=== PATIENT | male | born 2005 | race Caucasian/White ===

== ENCOUNTER 2024-10-11 17:28 | Observation (INO) ==
--- NOTE | 2024-10-11 19:00 | Emergency Department Note ---
Impression & Plan Cellulitis of arm, left, Contusion of elbow, left ED Provider Note NAME: MYRIAM MAGALLANES AGE: 19 SEX: M : 2005 ARRIVES VIA: Walk-In INFORMANT: Patient, ED PROVIDER(S): José Luis Valdivia DO CHIEF COMPLAINT: Elbow pain HPI: The patient is a 19-year-old male who presented to the emergency department for elbow pain and swelling. He had a fall last Monday onto his left elbow. He has a small puncture wound. He was seen at a local emergency department and was felt to have traumatic bursitis. He was treated with an Javed wrap as well as antibiotics. The patient noticed over the last few days his arms become much more swollen. He denies significant pain but does have decreased range of motion in left elbow. ROS: See above HPI for pertinent positives & negatives. A total of 10 systems reviewed and were otherwise negative. PAST MEDICAL HISTORY: See Below PAST SURGICAL HISTORY: See Below FAMILY HISTORY: See Below SOCIAL HISTORY: See Below HOME MEDICATIONS: See Below ALLERGIES: See Below VITALS: See Below PHYSICAL EXAMINATION: GENERAL: Patient is awake alert in no acute distress patient is resting comfortably and showing no signs of anxiety EYES: The conjunctivae are clear. The pupils are round and reactive. EARS, NOSE, MOUTH AND THROAT: The nose is without any evidence of any deformity. NECK: The neck is nontender and supple. RESPIRATORY: Normal respiratory effort is noted there is no evidence of wheezing rhonchi or rales CARDIOVASCULAR: Regular rate and rhythm noted there no murmurs rubs or gallops normal S1 normal S2. GASTROINTESTINAL: The abdomen is soft. Abdomen is nontender. MUSCULOSKELETAL/EXTREMITIES: There is no evidence of gross deformity full range of motion is noted in the hips and shoulders. There is pain with flexion and extension of the left elbow. There is significant swelling of the joint. SKIN: There is small puncture wound at the elbow. No drainage or bleeding was noted. There is significant erythema noted on the lateral aspect of the left elbow but extends into the proximal left arm as well as into the left forearm. NEUROLOGIC: Patient is awake alert and oriented x3 MEDICAL DECISION MAKING: The patient is a 19-year-old male who presented to the emergency department with left arm swelling and redness. The patient has an injury to his left arm which occurred previously. He continues to have swelling. His pain is significantly improved. X-rays were consistent with a possible fracture but CT does not show any obvious fracture. There is no obvious joint effusion. There is no foreign body or fluid collection. The patient was treated with IV antibiotics emergency department. I discussed the patient's laboratory and radiographic studies with him. I also discussed his condition with the on-call [facility] hospitalist. They have agreed to evaluate the patient in the emergency department for further management and disposition. Triage Nursing notes reviewed. Prior medical records reviewed Vital Signs: reviewed and remarkable for no significant abnormalities Differential diagnosis: Cellulitis, abscess, MRSA infection, DVT, necrotizing fasciitis, dermatitis, drug eruption, allergic reaction, as well as other pathologies. ER treatment provided: See below Diagnostics interpreted by me: ECG: none Cardiac Monitoring: An order was placed for continuous cardiac monitoring. The monitor shows a rate of 100 bpm with sinus rhythm. Laboratory studies: As stated above and show below. Imaging studies: See below. Radiographic imaging was reviewed by myself Consultation(s): I discussed this case with Dr. Leone. Past Med/Surg History Problem List (Updated 10/11/24 @ 23:39 by José Luis Valdivia DO) Contusion of elbow, left (Acute) Cellulitis of arm, left (Acute) Social History Smoking Status: Never smoker Preferred Language: Jordanian Feels Safe at Home: Yes Results & Data (ED) Vital Signs Vital Signs - 24 hr 10/11/24 17:54 10/11/24 19:23 10/11/24 19:34 Temperature 36.7 C 37.3 C Temperature Source Temporal Artery Scan Oral Pulse Rate 96 H 88 Pulse Rate [Apical] 90 Pulse Rhythm [Apical] Pulse Strength [Apical] Respiratory Rate 18 12 Respiratory Effort / Characteristics Non-Labored Spontaneous Respiratory Depth Normal Respiratory Pattern Regular Blood Pressure 139/80 Blood Pressure [Right Arm] 117/92 Blood Pressure Mean 99 Blood Pressure Mean [Right Arm] 100 Blood Pressure Position [Right Arm] Semi-fowlers Pulse Oximetry 97 100 Oxygen Delivery Method Room Air Room Air Sepsis New/Unexplained Change in Mental Status No Sepsis Action Taken by Nursing No Action Required 10/11/24 21:00 10/11/24 23:25 Temperature Temperature Source Pulse Rate Pulse Rate [Apical] 91 H 100 H Pulse Rhythm [Apical] Regular Regular Pulse Strength [Apical] Normal Normal Respiratory Rate 16 18 Respiratory Effort / Characteristics Non-Labored Non-Labored Spontaneous Respiratory Depth Normal Normal Respiratory Pattern Regular Regular Blood Pressure Blood Pressure [Right Arm] 131/76 136/76 Blood Pressure Mean Blood Pressure Mean [Right Arm] 94 96 Blood Pressure Position [Right Arm] Lying Pulse Oximetry 98 98 Oxygen Delivery Method Room Air Room Air Sepsis New/Unexplained Change in Mental Status Sepsis Action Taken by Residential Medications Current Medication List: was personally reviewed by me Laboratory Data Attestation: I reviewed the patient's lab results. 10/11/24 19:32 10/11/24 19:32 Lab Results 10/11/24 Range/Units 19:32 WBC 7.89 (4.8-10.8) K/ul RBC 5.14 (4.70-6.10) M/uL Hgb 14.9 (14.0-18.0) g/dl Hct 43.1 (42.0-52.0) % MCV 83.9 (80.0-100.0) fL MCH 29.0 (25.0-34.0) pg MCHC 34.6 (32.0-36.0) g/dL RDW Std Deviation 35.4 L (36.4-46.3) fL RDW Coeff of Denise 11.6 (11.5-14.5) % Plt Count 252 (130-400) K/uL MPV 10.3 (9.4-12.4) fL Immature Gran % (Auto) 0.3 % Neut % (Auto) 66.4 % Lymph % (Auto) 20.3 % [place] % (Auto) 6.0 % Eos % (Auto) 6.7 % Baso % (Auto) 0.3 % Neut # (Auto) 5.25 (1.40-6.50) K/uL Lymph # (Auto) 1.60 (1.20-3.40) K/uL [place] # (Auto) 0.47 (0.11-0.59) K/uL Eos # (Auto) 0.53 H (0.00-0.50) K/uL Baso # (Auto) 0.02 (0.00-0.20) K/uL Immature Gran # (Auto) 0.02 (0.01-0.20) K/uL Sodium 139 (136-145) mmol/L Potassium 4.0 (3.5-5.1) mmol/L Chloride 106 (98-107) mmol/L Carbon Dioxide 26 (21-32) mmol/L Anion Gap 7 (3-11) BUN 11 (6-23) mg/dl Creatinine 0.77 (0.6-1.4) mg/dl Est Cr Clr Drug Dosing 209.5 ml/min eGFR 131.44 BUN/Creatinine Ratio 14.3 (10-20) Glucose 90 (70-99(Fasting)) mg/dl Lactate 0.7 (0.4-2.0) mmol/L Calcium 9.0 (8.6-10.3) mg/dl Total Bilirubin 1.0 (0.2-1.0) mg/dl AST 12 L (13-39) U/L ALT 18 (7-52) U/L Alkaline Phosphatase 61 (34-104) U/L C-Reactive Protein 8.66 H (0-0.5) mg/dl Total Protein 7.5 (6.0-8.3) gm/dl Albumin 4.3 (3.4-5.0) gm/dl Globulin 3.2 (2.5-4.0) gm/dl Albumin/Globulin Ratio 1.3 (0.9-2) Procalcitonin 0.23 (0-0.5) ng/ml Administered Medications Vancomycin HCl 2,250 mg/ (Sodium Chloride) 545 mls @ 200 mls/hr IV NOW ONE Stop: 10/12/24 00:32 Last Admin: 10/11/24 22:24 Dose: 200 mls/hr Documented By: DIAZ Discontinued Medications Ceftriaxone Sodium (Rocephin) 2,000 mg in 50 mls @ 100 mls/hr IV NOW STA Stop: 10/11/24 19:18 Last Infusion: 10/11/24 20:08 Dose: Infused Documented By: Admin: 10/11/24 19:35 Dose: 100 mls/hr Documented By: DIAZ Imaging Data Attestation: I personally reviewed and interpreted this imaging study as follows: My Impression: X-ray of the left elbow was obtained in the emergency department. My interpretation is no free air or definite fracture, final report below. Radiologist's Impression: Elbow X-Ray 10/11/24 18:49 EXAM: XR elbow LT min 3V routine CLINICAL HISTORY: left elbow pain, redness and swelling after fall on monday clw TECHNIQUE: X-ray images of the left elbow were obtained in anteroposterior (AP), lateral, and oblique projections. COMPARISON: No prior studies available for comparison. FINDINGS: Bone Structure: cortical break/stepping of the cortex at the lateral aspect of the proximal end of the ulna. A faint lucent line and then the condylar region of the distal humerus. Articular Surfaces: Articular surfaces are smooth and intact. No signs of osteophyte formation or subchondral sclerosis. Soft Tissues: Mild soft tissue swelling Additional Findings: No signs of degenerative changes, such as osteoarthritis or inflammatory arthropathy. IMPRESSION: 1. Cortical break/stepping of the cortex at the lateral aspect of the proximal end of the ulna. 2. A faint lucent line and then the condylar region of the distal humerus. 3. Advised a CT scan for further evaluation. Disclaimer: A subtle bone abnormality or fracture may not be readily apparent on X-rays, thus clinical correlation and further imaging including follow-up CT, MRI, or follow-up X-rays are advised as needed. Electronically signed by Rose Mitchell 10-11-2024 8:00 PM Extremity Venous Study 10/11/24 18:51 Exam(s): US VENOUS LEFT UPPER EXTREMITY EXAM: US Duplex Left Upper Extremity Veins CLINICAL HISTORY: Reason for exam: swelling. TECHNIQUE: Real-time duplex ultrasound scan of the left upper extremity veins integrating B-mode two-dimensional vascular structure, Doppler spectral analysis, color flow Doppler imaging and compression. COMPARISON: No relevant prior studies available. FINDINGS: Deep veins: Unremarkable. No DVT in the internal jugular, subclavian, axillary, radial, ulnar, or brachial veins. The veins demonstrate normal color flow, are normally compressible, with normal phasic flow and/or augmentation response. Superficial veins: Unremarkable. No thrombus in the visualized basilic and cephalic veins. Soft tissues: No acute findings. IMPRESSION: No evidence of acute DVT. Electronically signed by: Zari Centeno M.D. 10/11/24 20:[address] 10/11/24 20:16 Exam(s): CT LEFT ELBOW Without Contrast EXAM: CT Left Upper Extremity Without Intravenous Contrast, Elbow CLINICAL HISTORY: Reason for exam: injury. TECHNIQUE: Axial computed tomography images of the left elbow without intravenous contrast. CTDI is 19.88 mGy and DLP is 407.17 mGy-cm. Automated exposure control was utilized for the study. A dose lowering technique was utilized adhering to the principles of ALARA. COMPARISON: Left elbow radiographs 10/11/24 FINDINGS: Bones/joints: Unremarkable. No fracture, dislocation, or joint effusion. Soft tissues: Posterior soft tissue swelling/contusion. IMPRESSION: 1. No fracture, dislocation, or joint effusion. 2. Posterior soft tissue swelling/contusion. Electronically signed by: Zari Centeno M.D. 10/11/24 21:04 PM Discharge Plan Visit Data Chief Complaint: Swelling/Edema to Extremity Stated Complaint: ELBOW SWOLLEN, INFECTED ED Provider: José Luis Valdivia Discharge Problem: Cellulitis of arm, left, Contusion of elbow, left Patient Disposition: Being Evaluated by Hospitalist Forms Stand Alone Forms: [facility], [facility] Referrals Referrals: PCP,NO [Physician] - Discharge Problem: Contusion of elbow, left Qualifiers: Encounter type: initial encounter Qualified Code(s): S50.02XA - Contusion of left elbow, initial encounter
[2024-10-11] MEDS: cefTRIAXone SODIUM 2,000 MG/50 ML BAG IV STA (19:35)
[2024-10-11 19:55] LABS: Basophils # (auto) 0.02 K/uL (0.00-0.20); Basophils % (auto) 0.3 %; Eosinophils # (auto) 0.53 K/uL (0.00-0.50); Eosinophils % (auto) 6.7 %; Hematocrit (blood only) 43.1 % (42.0-52.0); Hemoglobin 14.9 g/dl (14.0-18.0); Immature Granulocytes # (auto) 0.02 K/uL (0.01-0.20); Immature Granulocytes % (auto) 0.3 %; Lymphocytes % (auto) 20.3 %; Mean Corpuscular Hgb Conc 34.6 g/dL (32.0-36.0); Mean Corpuscular Volume 83.9 fL (80.0-100.0); Mean Platelet Volume 10.3 fL (9.4-12.4); Monocytes # (auto) 0.47 K/uL (0.11-0.59); Neutrophils # (auto) 5.25 K/uL (1.40-6.50); Neutrophils % (auto) 66.4 %; Platelet Count 252 K/uL (130-400); RDW Coefficient of Variation 11.6 % (11.5-14.5); RDW Standard Deviation 35.4 fL (36.4-46.3); Red Blood Count 5.14 M/uL (4.70-6.10); White Blood Count 7.89 K/ul (4.8-10.8)
--- NOTE | 2024-10-11 20:00 | XRay Report ---
EXAM: XR elbow LT min 3V routine CLINICAL HISTORY: left elbow pain, redness and swelling after fall on monday clw TECHNIQUE: X-ray images of the left elbow were obtained in anteroposterior (AP), lateral, and oblique projections. COMPARISON: No prior studies available for comparison. FINDINGS: Bone Structure: cortical break/stepping of the cortex at the lateral aspect of the proximal end of the ulna. A faint lucent line and then the condylar region of the distal humerus. Articular Surfaces: Articular surfaces are smooth and intact. No signs of osteophyte formation or subchondral sclerosis. Soft Tissues: Mild soft tissue swelling Additional Findings: No signs of degenerative changes, such as osteoarthritis or inflammatory arthropathy. IMPRESSION: 1. Cortical break/stepping of the cortex at the lateral aspect of the proximal end of the ulna. 2. A faint lucent line and then the condylar region of the distal humerus. 3. Advised a CT scan for further evaluation. Disclaimer: A subtle bone abnormality or fracture may not be readily apparent on X-rays, thus clinical correlation and further imaging including follow-up CT, MRI, or follow-up X-rays are advised as needed. Electronically signed by Rose Mitchell 10-11-2024 8:00 PM
[2024-10-11 20:11] LABS: Albumin Globulin Ratio 1.3 (0.9-2); Albumin Level 4.3 gm/dl (3.4-5.0); BUN Creatinine Ratio 14.3 (10-20); Creatinine Clr Calc Pharmacy 209.5 ml/min; Globulin 3.2 gm/dl (2.5-4.0); Total Protein 7.5 gm/dl (6.0-8.3)
--- NOTE | 2024-10-11 20:42 | Ultrasound Report ---
Exam(s): US VENOUS LEFT UPPER EXTREMITY EXAM: US Duplex Left Upper Extremity Veins CLINICAL HISTORY: Reason for exam: swelling. TECHNIQUE: Real-time duplex ultrasound scan of the left upper extremity veins integrating B-mode two-dimensional vascular structure, Doppler spectral analysis, color flow Doppler imaging and compression. COMPARISON: No relevant prior studies available. FINDINGS: Deep veins: Unremarkable. No DVT in the internal jugular, subclavian, axillary, radial, ulnar, or brachial veins. The veins demonstrate normal color flow, are normally compressible, with normal phasic flow and/or augmentation response. Superficial veins: Unremarkable. No thrombus in the visualized basilic and cephalic veins. Soft tissues: No acute findings. IMPRESSION: No evidence of acute DVT. Electronically signed by: Zari Centeno M.D. 10/11/24 20:41 PM
--- NOTE | 2024-10-11 21:05 | CT Scan Report ---
Exam(s): CT LEFT ELBOW Without Contrast EXAM: CT Left Upper Extremity Without Intravenous Contrast, Elbow CLINICAL HISTORY: Reason for exam: injury. TECHNIQUE: Axial computed tomography images of the left elbow without intravenous contrast. CTDI is 19.88 mGy and DLP is 407.17 mGy-cm. Automated exposure control was utilized for the study. A dose lowering technique was utilized adhering to the principles of ALARA. COMPARISON: Left elbow radiographs 10/11/24 FINDINGS: Bones/joints: Unremarkable. No fracture, dislocation, or joint effusion. Soft tissues: Posterior soft tissue swelling/contusion. IMPRESSION: 1. No fracture, dislocation, or joint effusion. 2. Posterior soft tissue swelling/contusion. Electronically signed by: Zari Centeno M.D. 10/11/24 21:04 PM
[2024-10-11] MEDS ORDERED: VANCOMYCIN CONSULT ACTIVE PRN (21:49)
--- NOTE | 2024-10-11 22:17 | History & Physical Report ---
Date of Service October 11, 2024 Assessment & Plan (1) Contusion of elbow, left: (2) Cellulitis of arm, left: Plan Left elbow contusion/left arm cellulitis- Continue vancomycin IV and ceftriaxone IV begun in ED Acetaminophen 650 mg by mouth every 6 hours as needed for mild pain or fever Zofran 4 mg IV every 6 hours as needed SCDs Patient will check on up-to-date of Tetanus X-ray of left elbow question cortical break/stepping off of the cortex of the lateral aspect the proximal end of the ulna. A faint lucent line and then the condyle region of the distal humerus. CT scan of elbow showed no fracture, dislocation or joint effusion. There was posterior soft tissue swelling/contusion Consult orthopedic surgery History of Present Illness Chief Complaint: The patient presents to the emergency department with complaint of worsening left elbow pain, swelling and progressive redness despite use of Keflex after having been seen at an outside hospital emergency department for an injury to his left elbow with small puncture wound 4 days ago Primary Care Provider: [facility] The patient is a 19-year-old male with no significant past medical history, who fell on a 30 concrete about 4 days ago, was seen in the emergency department outside hospital, had imaging which was negative for fracture, and was placed on Keflex and instructed to follow-up when he reached [place]. The patient presents to the ED this evening with complaint of worsening pain, stiffness, swelling and progressive redness. He denies any systemic symptoms of myalgias or arthralgias, fatigue, or other symptoms suggestive of sepsis. He thinks his tetanus shot is up-to-date, but he will be checking on that with his family Allergies Allergy/AdvReac Type Severity Reaction Status Date / Time No Known Allergies Allergy Unverified 10/12/24 00:24 Past Med/Surg History Problem List (Updated 10/11/24 @ 23:39 by José Luis Valdivia DO) Contusion of elbow, left (Acute) Cellulitis of arm, left (Acute) Social History Smoking Status: Never smoker Second Hand Exposure: No; Do You Dip or Chew Tobacco: No; Tobacco Cessation Education Requested by Patient: No Hx Alcohol Use: Yes Alcohol type: beer Hx Substance Use: No Preferred Language: Turkmen Communication Ability: Effective Oil Gauger Required: No Beliefs That Will Affect Care: None Current Living Situation: Alone Current Living Situation Comment: Student at [employer] Feels Safe at Home: Yes Assistive Devices: Glasses Review of Systems Review of Systems: The patient denies chest pain, palpitations, shortness of breath, dyspnea on exertion, cough, lower extremity swelling, sore throat, fevers, chills, sweats, weight change, fatigue, nausea, vomiting, diarrhea , constipation, abdominal pain, pelvic pain, blood in urine or stool, dysuria, urinary frequency or urgency, lightheadedness, dizziness, headache, imbalance, focal or generalized weakness, numbness or tingling in right arm or bilateral legs, generalized arthralgias or myalgias, back or neck pain, or night sweats. The review of systems is otherwise negative other than for that already noted above, and at least 10 systems have been reviewed. Physical Exam Physical Exam: The patient is awake, alert and oriented 3, well developed and well nourished, normocephalic and atraumatic, lying in bed and in no acute distress. HEENT--PERRL, EOMI, mucous membranes and oropharynx dry. Neck--supple. No JVD. No bruits. Thyroid normal, trachea midline, no adenopathy. Heart--normal S1 and S2. No murmurs, rubs or gallops. Lungs--clear bilaterally, no respiratory distress, no accessory muscle use. Abdomen--normal bowel sounds and soft. Nontender. Nondistended, no hernias or masses, no organomegaly. Extremities--bilateral lower extremities with no cyanosis clubbing or edema. Left upper extremity with 1+ edema, and erythema extending from mid bicep to mid forearm, with tenderness over elbow Dermatologic--normal except for left arm and elbow. Neurologic--cranial nerves II through XII grossly intact. Rheumatologic--normal range of motion except for left arm and elbow Psychiatric--normal affect. Results & Data Results & Data Vital Signs (Past 12 Hours) Vital Signs Temp Pulse Pulse Resp BP BP Pulse Ox 10/11/24 21:00 91 H 16 131/76 98 10/11/24 19:34 88 10/11/24 19:23 37.3 C 90 12 117/92 100 10/11/24 17:54 36.7 C 96 H 18 139/80 97 O2 Del Method 10/11/24 21:00 Room Air 10/11/24 19:34 10/11/24 19:23 Room Air 10/11/24 17:54 Room Air Laboratory Results Laboratory Results WBC 7.89 K/ul (4.8-10.8) 10/11/24 19:32 RBC 5.14 M/uL (4.70-6.10) 10/11/24 19:32 Hgb 14.9 g/dl (14.0-18.0) 10/11/24 19:32 Hct 43.1 % (42.0-52.0) 10/11/24 19:32 MCV 83.9 fL (80.0-100.0) 10/11/24 19: MCH 29.0 pg (25.0-34.0) 10/11/24 19: MCHC 34.6 g/dL (32.0-36.0) 10/11/24 19: RDW Std Deviation 35.4 fL (36.4-46.3) L 10/11/24 19: RDW Coeff of Denise 11.6 % (11.5-14.5) 10/11/24 19:32 Plt Count 252 K/uL (130-400) 10/11/24 19:32 MPV 10.3 fL (9.4-12.4) 10/11/24 19:32 Immature Gran % (Auto) 0.3 % 10/11/24 19:32 Neut % (Auto) 66.4 % 10/11/24 19:32 Lymph % (Auto) 20.3 % 10/11/24 19:32 Moody % (Auto) 6.0 % 10/11/24 19:32 Eos % (Auto) 6.7 % 10/11/24 19:32 Baso % (Auto) 0.3 % 10/11/24 19:32 Neut # (Auto) 5.25 K/uL (1.40-6.50) 10/11/24 19:32 Lymph # (Auto) 1.60 K/uL (1.20-3.40) 10/11/24 19:32 Moody # (Auto) 0.47 K/uL (0.11-0.59) 10/11/24 19:32 Eos # (Auto) 0.53 K/uL (0.00-0.50) H 10/11/24 19:32 Baso # (Auto) 0.02 K/uL (0.00-0.20) 10/11/24 19:32 Immature Gran # (Auto) 0.02 K/uL (0.01-0.20) 10/11/24 19:32 Sodium 139 mmol/L (136-145) 10/11/24 19:32 Potassium 4.0 mmol/L (3.5-5.1) 10/11/24 19:32 Chloride 106 mmol/L (98-107) 10/11/24 19:32 Carbon Dioxide 26 mmol/L (21-32) 10/11/24 19:32 Anion Gap 7 (3-11) 10/11/24 19:32 BUN 11 mg/dl (6-23) 10/11/24 19:32 Creatinine 0.77 mg/dl (0.6-1.4) 10/11/24 19:32 Est Cr Clr Drug Dosing 209.5 ml/min 10/11/24 19:32 eGFR 131.44 10/11/24 19:32 BUN/Creatinine Ratio 14.3 (10-20) 10/11/24 19:32 Glucose 90 mg/dl (70-99(Fasting)) 10/11/24 19:32 Lactate 0.7 mmol/L (0.4-2.0) 10/11/24 19:32 Calcium 9.0 mg/dl (8.6-10.3) 10/11/24 19:32 Total Bilirubin 1.0 mg/dl (0.2-1.0) 10/11/24 19:32 AST 12 U/L (13-39) L 10/11/24 19:32 ALT 18 U/L (7-52) 10/11/24 19:32 Alkaline Phosphatase 61 U/L (34-104) 10/11/24 19:32 C-Reactive Protein 8.66 mg/dl (0-0.5) H 10/11/24 19:32 Total Protein 7.5 gm/dl (6.0-8.3) 10/11/24 19:32 Albumin 4.3 gm/dl (3.4-5.0) 10/11/24 19:32 Globulin 3.2 gm/dl (2.5-4.0) 10/11/24 19:32 Albumin/Globulin Ratio 1.3 (0.9-2) 10/11/24 19:32 Procalcitonin 0.23 ng/ml (0-0.5) 10/11/24 19:32 Impressions Elbow X-Ray 10/11/24 18:49 EXAM: XR elbow LT min 3V routine CLINICAL HISTORY: left elbow pain, redness and swelling after fall on monday clw TECHNIQUE: X-ray images of the left elbow were obtained in anteroposterior (AP), lateral, and oblique projections. COMPARISON: No prior studies available for comparison. FINDINGS: Bone Structure: cortical break/stepping of the cortex at the lateral aspect of the proximal end of the ulna. A faint lucent line and then the condylar region of the distal humerus. Articular Surfaces: Articular surfaces are smooth and intact. No signs of osteophyte formation or subchondral sclerosis. Soft Tissues: Mild soft tissue swelling Additional Findings: No signs of degenerative changes, such as osteoarthritis or inflammatory arthropathy. IMPRESSION: 1. Cortical break/stepping of the cortex at the lateral aspect of the proximal end of the ulna. 2. A faint lucent line and then the condylar region of the distal humerus. 3. Advised a CT scan for further evaluation. Disclaimer: A subtle bone abnormality or fracture may not be readily apparent on X-rays, thus clinical correlation and further imaging including follow-up CT, MRI, or follow-up X-rays are advised as needed. Electronically signed by Rose Mitchell 10-11-2024 8:00 PM Extremity Venous Study 10/11/24 18:51 Exam(s): US VENOUS LEFT UPPER EXTREMITY EXAM: US Duplex Left Upper Extremity Veins CLINICAL HISTORY: Reason for exam: swelling. TECHNIQUE: Real-time duplex ultrasound scan of the left upper extremity veins integrating B-mode two-dimensional vascular structure, Doppler spectral analysis, color flow Doppler imaging and compression. COMPARISON: No relevant prior studies available. FINDINGS: Deep veins: Unremarkable. No DVT in the internal jugular, subclavian, axillary, radial, ulnar, or brachial veins. The veins demonstrate normal color flow, are normally compressible, with normal phasic flow and/or augmentation response. Superficial veins: Unremarkable. No thrombus in the visualized basilic and cephalic veins. Soft tissues: No acute findings. IMPRESSION: No evidence of acute DVT. Electronically signed by: Zari Centeno M.D. 10/11/24 20:[address] 10/11/24 20:16 Exam(s): CT LEFT ELBOW Without Contrast EXAM: CT Left Upper Extremity Without Intravenous Contrast, Elbow CLINICAL HISTORY: Reason for exam: injury. TECHNIQUE: Axial computed tomography images of the left elbow without intravenous contrast. CTDI is 19.88 mGy and DLP is 407.17 mGy-cm. Automated exposure control was utilized for the study. A dose lowering technique was utilized adhering to the principles of ALARA. COMPARISON: Left elbow radiographs 10/11/24 FINDINGS: Bones/joints: Unremarkable. No fracture, dislocation, or joint effusion. Soft tissues: Posterior soft tissue swelling/contusion. IMPRESSION: 1. No fracture, dislocation, or joint effusion. 2. Posterior soft tissue swelling/contusion. Electronically signed by: Zari Centeno M.D. 10/11/24 21:04 PM Code Status & VTE Plan Code Status Full code VTE Prophylaxis Plan VTE Prophylaxis will be ordered: Yes PG Care Time/CCT Total # of Minutes Spent Total Time Spent with Patient: Total time spent is greater than 50% in coordination of care (as documented) at patient's floor/unit and/or counseling patient: Coding Level of Care Code 43836 INT INP/OBS CARE 2/55MIN Diagnoses Contusion of elbow, left S50.02XA Encounter type: initial encounter Cellulitis of arm, left L03.114 (1) Contusion of elbow, left Encounter type: initial encounter Qualified Code(s): S50.02XA - Contusion of left elbow, initial encounter
[2024-10-11] MEDS: VANCOMYCIN HCL 2,250 MG in SODIUM CHLORIDE 0.9% 500 ML IV ONE (22:24)
[2024-10-11 22:57] LABS: C Reactive Protein 8.66 mg/dl (0-0.5)
[2024-10-12] MEDS ORDERED: ONDANSETRON INJ 2 MG/ML 2 ML VIAL IV PRN (00:04)
[2024-10-12] MEDS ORDERED: VANCOMYCIN CONSULT ACTIVE PRN (00:04)
[2024-10-12] MEDS ORDERED: Patient's ALLERGY Info needs ENTERED STA (00:08)
[2024-10-12] MEDS: VANCOMYCIN HCL 1,500 MG in SODIUM CHLORIDE 0.9% 500 ML IV SCH (04:34)
[2024-10-12] MEDS: ACETAMINOPHEN 325 MG TAB PO PRN (04:38)
[2024-10-12] MEDS: INFLUENZA VACC TS2024-25(6m+)/PF (IIV3) 0.5mL Syr IM ONE (07:18)
[2024-10-12 07:29] LABS: Basophils # (auto) 0.05 K/uL (0.00-0.20); Basophils % (auto) 0.7 %; Eosinophils # (auto) 0.59 K/uL (0.00-0.50); Eosinophils % (auto) 8.7 %; Hematocrit (blood only) 40.4 % (42.0-52.0); Hemoglobin 14.1 g/dl (14.0-18.0); Immature Granulocytes # (auto) 0.03 K/uL (0.01-0.20); Immature Granulocytes % (auto) 0.4 %; Lymphocytes # (auto) 1.91 K/uL (1.20-3.40); Mean Corpuscular Hemoglobin 29.4 pg (25.0-34.0); Mean Corpuscular Hgb Conc 34.9 g/dL (32.0-36.0); Mean Corpuscular Volume 84.3 fL (80.0-100.0); Mean Platelet Volume 10.2 fL (9.4-12.4); Monocytes # (auto) 0.58 K/uL (0.11-0.59); Monocytes % (auto) 8.5 %; Neutrophils # (auto) 3.65 K/uL (1.40-6.50); Neutrophils % (auto) 53.7 %; Platelet Count 238 K/uL (130-400); RDW Coefficient of Variation 11.5 % (11.5-14.5); RDW Standard Deviation 35.5 fL (36.4-46.3); Red Blood Count 4.79 M/uL (4.70-6.10); White Blood Count 6.81 K/ul (4.8-10.8)
--- NOTE | 2024-10-12 07:43 | Hospitalist Progress Note ---
Date of Service October 12, 2024 Assessment & Plan (1) Cellulitis of arm, left: Plan: 19yo M presented after fall on concrete ~4 days prior and seen at [facility]SH ER w/ negative xrays and put on keflex with follow up rec in [place] however presented to ER w/ worsening pain/stiffness/swelling and redness-- small puncture wound to left elbow and reported fluid drainage prior to admission w/ improvement following (no active drainage) Left elbow contusion/left arm cellulitis- Extremity Doppler without evidence for DVT X-ray of left elbow question cortical break/stepping off of the cortex of the lateral aspect the proximal end of the ulna. A faint lucent line and then the condyle region of the distal humerus. CT scan of elbow showed no fracture, dislocation or joint effusion. There was posterior soft tissue swelling/contusion Orthopedic surgery consulted Continue Vancomycin, Ceftriaxone. --No hx DM/no recent hot tub use. Suspect need for MRSA coverage Pain control/antiemetic as needed Nursing to provide pillow, elevation encouraged Patient is unsure of tetanus status, will provide booster in case SCDs ordered Monitoring on continued abx given failure of outpatient oral antibiotcs but has SIGNIFICANT improvement on exam and suspect able to dc in AM (2) Contusion of elbow, left: Plan: as above, orthopedics consult appreciated. CT w/o acute fracture given concerns on initial xray (3) Hypokalemia: Plan: K 3.4, PO replacement ordered. Mag wnl 1.9 Monitor on repeat Plan Dispo: continued inpatient stay on IV antibiotics but if continued improvement will plan to send on oral antibiotics in AM will need school note Admission and Anticipated Discharge Date Admission Date: October 11, 2024 Supervising Physician Co-Signing Physician Notes The patient was not seen by me. The chart was reviewed. Case discussed with DAMIAN Vanegas. Agree with assessment and plan Subjective Patient evaluated this morning, resting in bed. Reports feeling better. Cellulitis significantly improved. ROM intact, slight reduction w/ swelling. No active drainage but had some prior, discussed to alert if occurs and will send culture but remains on abx. Discussed as on abx prior to admission would like at least 24 hours given failure of oral antibiotics. Nursing to provide pillow and encouraged elevation to improve swelling. No hx DM, no recent hot tub use. Denied any improvement once started the keflex and discussed likely need for coverage for MRSA and will plan for dc tomorrow on oral if continued improvement as Is student, will need note. Does not live in the dorms. No fever/chills, chest pain, shortness of breath, abdominal pain, nausea at this time. Questions/concerns addressed at this time. Physical Exam 2 Physical Exam: General: 19yo male resting in bed, NAD, appears comfortable HEENT: head atraumatic, normocephalic, mmm, trachea midline Resp: even/unlabored, no obvious wheezing/cough, no tachypnea, on room air CV: RRR, no significant m/r/g, no pitting edema GI: +BS, soft/NT no iglesias MSK/Neuro: LUE with significant improvement in cellulitis, no active drainage from puncture wound to posterior shoulder, minimal eschar/scab, mild edema persists from biceps to dorsal forearm, minimal-mild tenderness, (rn to provide pillow for elevation) ROM intact with exception to extreme extension at the elbow 2nd to swelling Psych: AOx3, cooperative with exam Results & Data Results & Data Vital Signs (Past 12 Hours) Vital Signs Temp Pulse Resp BP Pulse Ox O2 Del Method 10/12/24 00:11 37.1 C 96 H 16 132/71 98 Room Air 10/12/24 00:11 37.1 C 96 H 16 132/71 98 Room Air 10/11/24 23:36 Room Air 10/11/24 23:25 100 H 18 136/76 98 Room Air 10/11/24 21:00 91 H 16 131/76 98 Room Air Laboratory Results 10/12/24 06:51 10/12/24 06:51 Mag 1.9 CRP 8.66 Procal 0.23 PG Care Time/CCT Total # of Minutes Spent Total Time Spent with Patient: Total time spent is greater than 50% in coordination of care (as documented) at patient's floor/unit and/or counseling patient: Coding Level of Care Code 26107 SUB INP/OBS CARE 2/35MIN Diagnoses Cellulitis of arm, left L03.114 Contusion of elbow, left S50.02XA Encounter type: initial encounter Hypokalemia E87.6 (2) Contusion of elbow, left Encounter type: initial encounter Qualified Code(s): S50.02XA - Contusion of left elbow, initial encounter
[2024-10-12 08:04] LABS: Albumin Level 3.4 gm/dl (3.4-5.0); BUN Creatinine Ratio 12.2 (10-20); Calcium 8.7 mg/dl (8.6-10.3); Creatinine Clr Calc Pharmacy 217.7 ml/min; Magnesium 1.9 mg/dl (1.7-2.4); Phosphorus 4.9 mg/dl (2.5-4.9); Potassium 3.4 mmol/L (3.5-5.1)
[2024-10-12] MEDS: POTASSIUM CHLORIDE CRTAB 20 MEQ TABCR PO STA (09:17)
--- NOTE | 2024-10-12 10:00 | Pharmacy Report ---
Pharmacy PK ABX Note - Date of Service October 12, 2024 - Assessment and Plan Assessment * 19 year old M receiving ceftriaxone and vancomycin for treatment of cellulitis from an abrasion that did not improve on cephalexin. Plan Vancomycin * Loading dose: 2250 mg IV x 1 * Maintenance dose: 1500 mg IV every 8 hours * Regimen is predicted to achieve target AUC/PARRISH of 400-600 mg/L.hr * Trough level ordered for 10/13 @ 0330 Pharmacy will continue to follow and will adjust dose/frequency as necessary. Thank you. Pharmacy has transitioned to AUC monitoring for vancomycin. AUC/PARRISH is the preferred PK/PD target and is associated with decreased risk of nephrotoxicity compared to traditional trough targets.
--- NOTE | 2024-10-12 10:28 | Orthopedic Consultation ---
Date of Service October 12, 2024 Assessment & Plan (1) Cellulitis of arm, left: 27-year-old otherwise healthy male with posttraumatic bursitis that is evolved into some cellulitis. I see no indications for surgical intervention. Agree with current management. Recommend adding strict elevation on pillows. Consider full 24 hours of IV antibiotics before transitioning to oral regimen, the primary medical team's discretion. I will examine again in the morning if he remains inpatient. History of Present Illness Reason for Consultation: Left elbow cellulitis Requesting Physician: . Attending Physician: Yasir Stafford MD 19-year-old male sustained an impact injury to his left elbow when he fell down the stairs onto concrete floor on Saturday 10/06. He had a traumatic abrasion. The following day he had significant swelling and increasing pain at the elbow. He described it as like a baseball over his elbow. He was wearing a sweatshirt when he felt sudden release of significant amount of fluid draining out of the punctate abrasive wound. He went to the emergency room. He was treated with oral Keflex. This was an outside hospital down. He presented to the ER last night because of redness and swelling further down his forearm. He states that the elbow actually looks and feels better since the fluid released. He was concerned about the pressure and pain in his arm around the elbow. He denies any fevers, chills, no malaise. No history of similar symptoms. Allergies Allergy/AdvReac Type Severity Reaction Status Date / Time No Known Allergies Allergy Unverified 10/12/24 00:24 Past Med/Surg History Problem List Hypokalemia Contusion of elbow, left (Acute) Cellulitis of arm, left (Acute) Social History Smoking Status: Never smoker Second Hand Exposure: No; Do You Dip or Chew Tobacco: No; Tobacco Cessation Education Requested by Patient: No Hx Alcohol Use: Yes Alcohol type: beer Hx Substance Use: No Preferred Language: Ukrainian Communication Ability: Effective Furnace Brazer Required: No Beliefs That Will Affect Care: None Current Living Situation: Alone Current Living Situation Comment: Student at [employer] Feels Safe at Home: Yes Assistive Devices: Glasses Review of Systems All systems reviewed & are unremarkable except as noted in HPI & below. Physical Exam L UE: He is lying with his arm lying across his belly. He looks comfortable. He has full range of motion about the elbow wrist and digits and full pronation supination. No palpable elbow effusion. The skin over the olecranon has wrinkles and appears slightly edematous. Compared to his other uninvolved extremity, there is some edema in the skin and erythema extending over the dorsal forearm about midway towards the wrist. He is diffusely and mildly tender to this area. The punctate wound is at the apex of his olecranon. It is 2 to 3 mm in size and has a dry eschar. I attempted to express any fluid from the olecranon bursa but he tolerated this well and no fluid could be obtained. Look to be wellevolved and resolving. No evidence of focal fluid collections. Constitutional WD/WN, vitals as above no acute distress and not intoxicated appearing Respiratory normal respiratory effort; no labored breathing Cardiovascular Extremities: normal capillary refill Results & Data Results & Data Laboratory Results Laboratory Tests 10/11/24 10/12/24 19:32 06:51 WBC 6.81 Neut % (Auto) 53.7 C-Reactive Protein 8.66 H Diagnostic Findings Radiographs of the left elbow were reviewed from the ER last night. Reviewed the radiology interpretation. I disagree. I do not see any evidence of acute fracture. CT scan from overnight was reviewed. I reviewed the radiologist rotation. I agree that the elbow is without any acute fractures. There is diffuse soft tissue swelling without evidence of free fluid collection nor soft tissue air. PG Care Time/CCT Total # of Minutes Spent Total Time Spent with Patient: Total time spent is greater than 50% in coordination of care (as documented) at patient's floor/unit and/or counseling patient: Coding Level of Care Code 44061 IN/OBS CONSULT LVL 4,60M Diagnoses Cellulitis of arm, left L03.114
[2024-10-12] MEDS: DIPHTHER/TETAN/PERTUS Vaccine (Tdap, Adol/Adult) 0.5mL IM ONE (11:11)
[2024-10-12] MEDS ORDERED: KETOROLAC TROMETHAMINE 15 MG/ML VIAL IV PRN (14:48)
[2024-10-12] MEDS: cefTRIAXone SODIUM 2,000 MG/50 ML BAG IV SCH (18:07)
[2024-10-13 03:37] LABS: Basophils # (auto) 0.05 K/uL (0.00-0.20); Basophils % (auto) 0.7 %; Eosinophils # (auto) 0.69 K/uL (0.00-0.50); Eosinophils % (auto) 9.9 %; Hematocrit (blood only) 43.6 % (42.0-52.0); Hemoglobin 15.1 g/dl (14.0-18.0); Immature Granulocytes # (auto) 0.04 K/uL (0.01-0.20); Immature Granulocytes % (auto) 0.6 %; Lymphocytes # (auto) 2.21 K/uL (1.20-3.40); Lymphocytes % (auto) 31.8 %; Mean Corpuscular Hgb Conc 34.6 g/dL (32.0-36.0); Mean Corpuscular Volume 83.7 fL (80.0-100.0); Mean Platelet Volume 9.9 fL (9.4-12.4); Monocytes # (auto) 0.52 K/uL (0.11-0.59); Monocytes % (auto) 7.5 %; Neutrophils # (auto) 3.45 K/uL (1.40-6.50); Neutrophils % (auto) 49.5 %; Platelet Count 265 K/uL (130-400); RDW Coefficient of Variation 11.6 % (11.5-14.5); RDW Standard Deviation 34.9 fL (36.4-46.3); Red Blood Count 5.21 M/uL (4.70-6.10); White Blood Count 6.96 K/ul (4.8-10.8)
[2024-10-13 03:57] LABS: Albumin Level 3.7 gm/dl (3.4-5.0); C Reactive Protein 3.27 mg/dl (0-0.5); Calcium 9.2 mg/dl (8.6-10.3); Creatinine Clr Calc Pharmacy 187.3 ml/min; Magnesium 2.1 mg/dl (1.7-2.4); Phosphorus 4.8 mg/dl (2.5-4.9); Potassium 3.9 mmol/L (3.5-5.1)
[2024-10-13 07:32] VITALS: BP 122/72; PULSE 81; RESP 16; TEMP 97.9; O2SAT 96
--- NOTE | 2024-10-13 08:29 | Hospitalist Progress Note ---
Date of Service October 13, 2024 Assessment & Plan (1) Cellulitis of arm, left: Plan: 19yo M presented after fall on concrete ~4 days prior and seen at OSH ER w/ negative xrays and put on keflex with follow up rec in [place] however presented to ER w/ worsening pain/stiffness/swelling and redness-- small puncture wound to left elbow and reported fluid drainage prior to admission w/ improvement following (no active drainage) Left elbow contusion/left arm cellulitis- Extremity Doppler without evidence for DVT X-ray of left elbow question cortical break/stepping off of the cortex of the lateral aspect the proximal end of the ulna. A faint lucent line and then the condyle region of the distal humerus. CT scan of elbow showed no fracture, dislocation or joint effusion. There was posterior soft tissue swelling/contusion Orthopedic surgery consulted Continue Vancomycin, Ceftriaxone. --No hx DM/no recent hot tub use. Suspect need for MRSA coverage Pain control/antiemetic as needed Nursing to provide pillow, elevation encouraged Patient is unsure of tetanus status, will provide booster in case SCDs ordered Monitoring on continued abx given failure of outpatient oral antibiotcs but has SIGNIFICANT improvement on exam and suspect able to dc in AM 10/13 Continued on vanc/ceftriaxone. do note eosinophil elevation but no significant rash on exam. 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 CRP has trended down on repeat 8.6--> 3.2 -- Will see ortho consult f/u and potential dc today on ?Bactrim (2) Contusion of elbow, left: Plan: as above, orthopedics consult appreciated. CT w/o acute fracture given concerns on initial xray (3) Hypokalemia: Plan: K 3.4, PO replacement ordered. Mag wnl 1.9 Monitor on repeat Plan Dispo: continued inpatient stay on IV antibiotics but if continued improvement will plan to send on oral antibiotics in AM will need school note Admission and Anticipated Discharge Date Admission Date: October 11, 2024 Results & Data Results & Data Vital Signs (Past 12 Hours) Vital Signs Temp Pulse Resp BP Pulse Ox O2 Del Method 10/13/24 07:31 36.6 C 81 16 122/72 96 Room Air PG Care Time/CCT Total # of Minutes Spent Total Time Spent with Patient: Total time spent is greater than 50% in coordination of care (as documented) at patient's floor/unit and/or counseling patient: Coding Diagnoses Cellulitis of arm, left L03.114 Contusion of elbow, left S50.02XA Encounter type: initial encounter Hypokalemia E87.6 (2) Contusion of elbow, left Encounter type: initial encounter Qualified Code(s): S50.02XA - Contusion of left elbow, initial encounter
--- NOTE | 2024-10-13 09:44 | Pharmacy Report ---
Pharmacy PK ABX Note - Date of Service October 13, 2024 - Assessment and Plan Assessment * 19 year old M receiving ceftriaxone and vancomycin for treatment of cellulitis from an abrasion that did not improve on cephalexin. Plan Vancomycin * Maintenance dose: 1500 mg IV every 8 hours * Target AUC/PARRISH of 400-600 mg/L.hr * Level of 11.8 mcg/mL today associated with a therapeutic AUC of 442 mg/L.hr * Repeat earlier random level in 48 hours to assess for accumulation 2nd BMI Pharmacy will continue to follow and will adjust dose/frequency as necessary. Thank you. Pharmacy has transitioned to AUC monitoring for vancomycin. AUC/PARRISH is the preferred PK/PD target and is associated with decreased risk of nephrotoxicity compared to traditional trough targets.
--- NOTE | 2024-10-13 11:39 | Discharge Summary ---
Discharge Summary Date of Service October 13, 2024 Principal Dx & Hospital Course #1 = Principal Diagnosis (1) Cellulitis of arm, left: 19yo M presented after fall on concrete ~4 days prior and seen at [facility] ER w/ negative xrays and put on keflex with follow up rec in [place] however presented to ER w/ worsening pain/stiffness/swelling and redness-- small puncture wound to left elbow and reported fluid drainage prior to admission w/ improvement following. UTD on tetanus shots/immunizations per mom. Extremity Doppler without evidence for DVT X-ray of left elbow question cortical break/stepping off of the cortex of the lateral aspect the proximal end of the ulna. A faint lucent line and then the condyle region of the distal humerus. CT scan of elbow showed no fracture, dislocation or joint effusion. Noted posterior soft tissue swelling/contusion Had been placed on Ceftriaxone/Vancomycin on admission. No hx DM/pseudomonas or hot tub use. Given Keflex use [employer], suspected needing coverage for MRSA. No active drainage appreciated Orthopedic surgery consulted, suspected post-traumatic bursitis with development into cellulitis. Rec'd for another 24hours IV antibiotics prior to discharge Encouraged elevation, toradol/tylenol available for pain, SCDs for DVT proph given low risk. Repeat exam 10/13 with improvement in redness/swelling as well as ROM of the elbow and discussed with orthopedics stable for discharge and has appt at home on with orthopedics. WBC remained wnl, afebrile. CRP trended down from 8.6--> 3.2 prior to discharge. Avoid tubs/soaks, keep clean. ROM/elevation. Dispo: Discharged on Bactrim 1 tablet BID x 7 more days, can be extended if needed. Discussed sx to monitor/return to ER for, avoid alcohol. Monitor for rash/diarrhea. Notable eosinophil elevation on differential but no other rash on exam/no difficulty breathing. Discussed with patient about having repeat blood counts obtained in follow up to ensure resolution but can be from meds/infection. Continue elevation. (2) Contusion of elbow, left: 2nd to fall on concrete above Orthopedics consult appreciated CT w/o acute fracture given concerns on initial xray Tx as outlined above and stable for dc with outpatient follow up above (3) Hypokalemia: K 3.4, PO replacement ordered. Mag wnl 1.9. Improved/resolved on repeat testing Plan Discharged on Bactrim BID to complete course. Updated father at bedside. Ortho f/u at home. Meds sent to home pharmacy and provided dose bactrim PO prior to dc. Notes For Next Care Provider Ensure orthopedics follow up Medication Changes From Visit Bactrim PO BID x 7 days, can be extended if needed Admission HPI Per Admitting Provider The patient is a 19-year-old male with no significant past medical history, who fell on a 30 concrete about 4 days ago, was seen in the emergency department outside hospital, had imaging which was negative for fracture, and was placed on Keflex and instructed to follow-up when he reached [place]. The patient presents to the ED this evening with complaint of worsening pain, stiffness, swelling and progressive redness. He denies any systemic symptoms of myalgias or arthralgias, fatigue, or other symptoms suggestive of sepsis. He thinks his tetanus shot is up-to-date, but he will be checking on that with his family Admission Exam Per Admitting Provider The patient is awake, alert and oriented 3, well developed and well nourished, normocephalic and atraumatic, lying in bed and in no acute distress. HEENT--PERRL, EOMI, mucous membranes and oropharynx dry. Neck--supple. No JVD. No bruits. Thyroid normal, trachea midline, no adenopathy. Heart--normal S1 and S2. No murmurs, rubs or gallops. Lungs--clear bilaterally, no respiratory distress, no accessory muscle use. Abdomen--normal bowel sounds and soft. Nontender. Nondistended, no hernias or masses, no organomegaly. Extremities--bilateral lower extremities with no cyanosis clubbing or edema. Left upper extremity with 1+ edema, and erythema extending from mid bicep to mid forearm, with tenderness over elbow Dermatologic--normal except for left arm and elbow. Neurologic--cranial nerves II through XII grossly intact. Rheumatologic--normal range of motion except for left arm and elbow Psychiatric--normal affect. Discharge Exam General: 19yo male resting in bed, NAD, appears comfortable, father in room HEENT: head atraumatic, normocephalic, mm improved Resp: even/unlabored, no obvious wheezing/cough, no tachypnea, on room air CV: RRR, no significant m/r/g, no pitting edema GI: +BS, soft/NT no iglesias MSK/Neuro: LUE with significant improvement in erythema/cellulitis, improvement in ROM, no drainage, pulses present/sensation intact. Nontender over olecranon bursal/no effusion noted Psych: AOx3, cooperative with exam Discharge Plan Discharge Items Patient Disposition: Home - Self-Care Reason For Visit: LEFT ELBOW CELLULITIS/BURSITIS Discharge Diagnosis: Cellulitis Goals: You have been hospitalized for an acute medical problem. During your stay at [facility], we have made an effort to correct the problem that brought you to the hospital while keeping you as comfortable as possible. Medications were used to bring your condition under control and your discharge instructions will include directions for any medications you should take after leaving the hospital. Please make sure you see your Primary Care Provider as part of your follow up plan. Activity: As commented below Activity Comment: continue to keep elevated above the level of the heart to help swelling Non-emergency contact: Primary Care Provider and Surgeon Call non-emergency contact if: you have any medication questions, your symptoms worsen, your pain is not controlled, your pain is concerning for you and you have a fever Follow-up/Referrals: [facility] [Primary Care Provider] - (PLEASE MAKE HOSPITAL FOLLOW UP IN 7-10 DAYS.) Diet: Regular Addtl Attending Provider Instructions: You have been hospitalized for redness/swelling and concerns for progression of cellulitis following trauma and outpatient antibiotics. We treated you with IV antibiotics to cover for MRSA which was not previously covered and your white count has been normal/no fevers and improvement in cellulitis on exam. Imaging was negative for acute blood clot. CT imaging did not show any abscess or fluid collection needing drained and did not report any fractures. Orthopedics was consulted and recommended at least 24 hours of IV antibiotics prior to transition to oral agents to complete the course. At discharge, we are recommending continued elevation of the elbow to level of the heart to help with swelling as well as continued antibiotics in the form of BACTRIM which is to be taken twice daily for another 7 days. Monitor for any increased diarrhea/changes to your urine or yellowing of skin on this antibiotic however generally well tolerated and you do not have a reported allergy and this will cover for MRSA as well as most other common bacteria living on the skin. Please continue to monitor for any increased redness/swelling/fever or drainage and follow up with orthopedics at home on as already arranged however if occurs prior to that appointment please return to the closest ER. Please keep the area clean/dry and avoid hot tubs/soaking in the tub. Please consider repeat blood count in follow up to ensure resolution in eosinophils and monitoring for other rash as discussed/alert provider if occurs. Please also follow up with primary care in the next 7-10 days to monitor your progress after discharge/coordinate your care. It has been a pleasure being a part of the medical team providing for you while you have been in the hospital. Take care! Pending Studies at Discharge: No Stand-Alone Forms: My [facility] [employer], Work/School Release, Smoking Cessation Medications and DC Order Prescriptions: New sulfamethoxazole-trimethoprim [Bactrim DS] 800-160 mg tablet 1 tab PO BID Qty: 13 0RF Discharge Orders: Discharge Order (Routine); Ordered 10/13/24 Ordered By: Keli Jones/Other Patient Handouts: Cellulitis Dc Admission Data Admit Date/Time: 10/11/24 22:16 Attending Provider: Yasir Stafford Admit Provider: César Felix Primary Care Provider: [facility] Other Providers: Greg Ocampo; César Felix Other Interventions: Discharge Summary Assessment (RN) Last Done: 10/13/24 12:03 Hospital Stay Data Consultations 10/11/24 21:49 ED Decision to Admit Stat 10/11/24 22:16 Consult Orthopedic Surgery Routine Diagnostic Imagining Performed Elbow X-Ray 10/11/24 18:49 EXAM: XR elbow LT min 3V routine CLINICAL HISTORY: left elbow pain, redness and swelling after fall on monday clw TECHNIQUE: X-ray images of the left elbow were obtained in anteroposterior (AP), lateral, and oblique projections. COMPARISON: No prior studies available for comparison. FINDINGS: Bone Structure: cortical break/stepping of the cortex at the lateral aspect of the proximal end of the ulna. A faint lucent line and then the condylar region of the distal humerus. Articular Surfaces: Articular surfaces are smooth and intact. No signs of osteophyte formation or subchondral sclerosis. Soft Tissues: Mild soft tissue swelling Additional Findings: No signs of degenerative changes, such as osteoarthritis or inflammatory arthropathy. IMPRESSION: 1. Cortical break/stepping of the cortex at the lateral aspect of the proximal end of the ulna. 2. A faint lucent line and then the condylar region of the distal humerus. 3. Advised a CT scan for further evaluation. Disclaimer: A subtle bone abnormality or fracture may not be readily apparent on X-rays, thus clinical correlation and further imaging including follow-up CT, MRI, or follow-up X-rays are advised as needed. Electronically signed by Rose Mitchell 10-11-2024 8:00 PM Extremity Venous Study 10/11/24 18:51 Exam(s): US VENOUS LEFT UPPER EXTREMITY EXAM: US Duplex Left Upper Extremity Veins CLINICAL HISTORY: Reason for exam: swelling. TECHNIQUE: Real-time duplex ultrasound scan of the left upper extremity veins integrating B-mode two-dimensional vascular structure, Doppler spectral analysis, color flow Doppler imaging and compression. COMPARISON: No relevant prior studies available. FINDINGS: Deep veins: Unremarkable. No DVT in the internal jugular, subclavian, axillary, radial, ulnar, or brachial veins. The veins demonstrate normal color flow, are normally compressible, with normal phasic flow and/or augmentation response. Superficial veins: Unremarkable. No thrombus in the visualized basilic and cephalic veins. Soft tissues: No acute findings. IMPRESSION: No evidence of acute DVT. Electronically signed by: Zari Centeno M.D. 10/11/24 20:[address] 10/11/24 20:16 Exam(s): CT LEFT ELBOW Without Contrast EXAM: CT Left Upper Extremity Without Intravenous Contrast, Elbow CLINICAL HISTORY: Reason for exam: injury. TECHNIQUE: Axial computed tomography images of the left elbow without intravenous contrast. CTDI is 19.88 mGy and DLP is 407.17 mGy-cm. Automated exposure control was utilized for the study. A dose lowering technique was utilized adhering to the principles of ALARA. COMPARISON: Left elbow radiographs 10/11/24 FINDINGS: Bones/joints: Unremarkable. No fracture, dislocation, or joint effusion. Soft tissues: Posterior soft tissue swelling/contusion. IMPRESSION: 1. No fracture, dislocation, or joint effusion. 2. Posterior soft tissue swelling/contusion. Electronically signed by: Zari Centeno M.D. 10/11/24 21:04 PM Discharge Instructions Given to Patient (Per Discharging Provider) You have been hospitalized for redness/swelling and concerns for progression of cellulitis following trauma and outpatient antibiotics. We treated you with IV antibiotics to cover for MRSA which was not previously covered and your white count has been normal/no fevers and improvement in cellulitis on exam. Imaging was negative for acute blood clot. CT imaging did not show any abscess or fluid collection needing drained and did not report any fractures. Orthopedics was consulted and recommended at least 24 hours of IV antibiotics prior to transition to oral agents to complete the course. At discharge, we are recommending continued elevation of the elbow to level of the heart to help with swelling as well as continued antibiotics in the form of BACTRIM which is to be taken twice daily for another 7 days. Monitor for any increased diarrhea/changes to your urine or yellowing of skin on this antibiotic however generally well tolerated and you do not have a reported allergy and this will cover for MRSA as well as most other common bacteria living on the skin. Please continue to monitor for any increased redness/swelling/fever or drainage and follow up with orthopedics at home on as already arranged however if occurs prior to that appointment please return to the closest ER. Please keep the area clean/dry and avoid hot tubs/soaking in the tub. Please consider repeat blood count in follow up to ensure resolution in eosinophils and monitoring for other rash as discussed/alert provider if occurs. Please also follow up with primary care in the next 7-10 days to monitor your progress after discharge/coordinate your care. It has been a pleasure being a part of the medical team providing for you while you have been in the hospital. Take care! Supervising Physician Co-Signing Physician Notes The patient was not seen by me. The chart was reviewed. Case discussed with DAMIAN Vanegas. Agree with assessment and plan Total Time Total Time Spent Total Time Spent (In Minutes): 40 Coding Level of Care Code 75060 INP/OBS DISCH >30 MIN Diagnoses Cellulitis of arm, left L03.114 Contusion of elbow, left S50.02XA Encounter type: initial encounter Hypokalemia E87.6
--- NOTE | 2024-10-13 11:41 | Orthopedic Progress Note ---
Date of Service October 13, 2024 Assessment & Plan (1) Cellulitis of arm, left: 27-year-old otherwise healthy male with posttraumatic bursitis that is evolved into some cellulitis which shows improvement today. I see no indications for surgical intervention. Agree with current management. Stable for outpatient follow-up in my opinion. Antibiotic selection per the primary team I encouraged him to keep his appointment Monday for another exam. Subjective Patient was evaluated today in his hospital room. His dad was present today. The patient reports he is feeling better and is ready to go home. He has an appointment for follow-up on Monday with an orthopedic surgeon in [place]. He denies any fevers, chills. He reports minimal discomfort in his left forearm. He has full range of elbow wrist and digits. Review of Systems All systems reviewed & are unremarkable except as noted in HPI & below. Physical Exam Left arm: Overall slightly improved. He still has some erythema along the ulnar border of the middle aspect of the forearm. Seems to be somewhat narrowed from yesterday. Certainly not significantly worse. The olecranon area appears even better. It is decongested and has normal mobility and wrinkles. The punctate wound has a dry stable eschar. He is nontender over the olecranon bursal area. No palpable elbow effusion. Full active range of motion to the entirety of the upper extremity. Constitutional WD/WN, vitals as above no acute distress and not intoxicated appearing Respiratory normal respiratory effort; no labored breathing Cardiovascular Extremities: normal capillary refill Results & Data Results & Data Laboratory Results . Diagnostic Findings Laboratory Tests 10/13/24 03:05 WBC 6.96 Neut % (Auto) 49.5 Eos # (Auto) 0.69 H C-Reactive Protein 3.27 H H & H 10/11/24 10/12/24 10/13/24 Range/Units 19:32 06:51 03:05 Hgb 14.9 14.1 15.1 (14.0-18.0) g/dl Hct 43.1 40.4 L 43.6 (42.0-52.0) % PG Care Time/CCT Total # of Minutes Spent Total Time Spent with Patient: Total time spent is greater than 50% in coordination of care (as documented) at patient's floor/unit and/or counseling patient: Coding Level of Care Code 94643 SUB INP/OBS CARE 50MIN Diagnoses Cellulitis of arm, left L03.114
[2024-10-13] MEDS: SULFAMETHOXAZOLE/TRIMETHOPRIM DS 800/160MG TAB PO ONE (12:42)
[2024-10-15] MEDS ORDERED: VANCOMYCIN LEVEL ONE (03:30)
== END 2024-10-13 12:52 | disposition home or self-care (01) ==
LOC: 3E 17:28 → ED 17:28 → SUATTDRO 22:16 → 3E 23:36